=== PATIENT | female | born 2000 ===

== ENCOUNTER 2024-11-16 20:48 | Emergency (ER) | payer SELFPAY ==
[~2024-11-16] VITALS: Ht 160 cm; Wt 54.4 kg
[2024-11-16] MEDS ORDERED: Lidocaine/Tetracaine/Epinephr 3 ML GEL SYRINGE TOP ONE (21:55)
[2024-11-16] MEDS ORDERED: Trimethoprim/Sulfamethoxazole DS Tab PO ONE (22:00)
== END 2024-11-16 22:31 | disposition left against medical advice (07) ==
LOC: ER 20:48
DX: L02.414 Cutaneous abscess of left upper limb (principal); Z53.29 Procedure and treatment not carried out because of patient's decision for other reasons
CPT/HCPCS: 99283; A9270